=== PATIENT | male | born 2000 | race Hispanic/Latino ===

== ENCOUNTER 2022-07-31 05:01 | Emergency (ER) | payer SELFPAY | END 2022-07-31 11:10 | disposition home or self-care (01) | LOC: CSHERS 05:01 | DX: F10.129 Alcohol abuse with intoxication, unspecified (principal); F17.210 Nicotine dependence, cigarettes, uncomplicated; Y90.9 Presence of alcohol in blood, level not specified | CPT/HCPCS: 99284 ==